=== PATIENT | male | born 1980 | race Caucasian/White ===

== ENCOUNTER → 2017-08-10 | Outpatient (CLI) | payer OTHER | LOC: LAB 13:52 | PROVIDERS: ATTEND Obstetrics & Gynecology Reproductive Endocrinology | DX: Z31.448 Encounter for other genetic testing of male for procreative management (principal) | CPT/HCPCS: 36415; 88230; 88262; 88291 ==

== ENCOUNTER → 2017-08-10 | Outpatient (CLI) | payer OTHER ==
--- NOTE | 2017-08-10 15:31 | RADIOLOGY IMAGING REPORT ---
FACILITY: [facility] - [place] PATIENT NAME: Gabriel Alexis : 1980 MR: [id number] V: [id number] EXAM DATE: ORDERING PHYSICIAN: JENNIFER WIGGINS TECHNOLOGIST: Location: [facility] Patient: Gabriel Alexis : 1980 Visit/Account:[id number] Date of Sevice: 08/10/2017 EXAMINATION: Limited Abdomen Ultrasound HISTORY: Elevated liver function tests COMPARISON: None FINDINGS: Pancreas: Pancreas head and body have uniform echogenicity and well-defined margins. Pancreas tail is scattered by bowel gas. Liver: Liver is normal size with smooth margins and homogeneous intermediate echogenicity. Normal di rectional blood flow in the main portal vein by duplex Doppler ultrasound. Bile ducts: Intrahepatic and extrahepatic bile ducts are not distended. The common hepatic duct at the liver hilum measures 3.5 mm. Gallbladder:Gallbladder is normal size and wall thickness. Gallbladder contains no stones or sludge. Right Kidney: Right kidney measures 11 x 5 x 5 cm. A cyst with asymmetrically thickened wall and sep tation arising from the medial upper pole measures 2.7 x 2.5 x 2.5 cm. No blood flow is seen within the cyst septation or wall by color Doppler ultrasound. Abdominal aorta and IVC:Abdominal aorta and IVC are normal caliber. Both are patent. Ascites: None IMPRESSION: 1. Right kidney upper pole 3 cm cyst with eccentric thick wall and thin septation. Recommend CT abd omen with and without IV contrast for further assessment. 2. Normal ultrasound appearance of the liver. Report Dictated By: Stephanie Romero MD at 08/10/2017 3:17 PM Report E-Signed By: Stephanie Romero MD at 08/10/2017 3:26 PM WSN:[email or web address]
== END ==
LOC: US 12:52
PROVIDERS: ATTEND Family Medicine
DX: N28.1 Cyst of kidney, acquired (principal)
CPT/HCPCS: 76705

== ENCOUNTER → 2017-08-20 | Outpatient (CLI) | payer OTHER ==
[~2017-08-20] MED LIST: IOPAMIDOL 76% 75 ML INFUS BTL 75 ML ONE
--- NOTE | 2017-08-20 11:33 | RADIOLOGY IMAGING REPORT ---
FACILITY: [facility] PATIENT NAME: Gabriel Alexis : 1980 MR: [id number] V: [id number] EXAM DATE: ORDERING PHYSICIAN: JENNIFER WIGGINS TECHNOLOGIST: Location: [facility] [place] Patient: Gabriel Alexis : 1980 Visit/Account:[id number] Date of Sevice: 08/20/2017 CT ABDOMEN WITH AND WITHOUT CONTRAST CLINICAL INFORMATION: Kidney cyst TECHNIQUE: Axial CT images were obtained through the abdomen before and after injection of nonionic iodinated intravenous contrast. Reformatted coronal and sagittal images were also obtained. Pre cont rast and delayed images were obtained. For groundglass nodules this size, no routine follow-up is rec ommended. CONTRAST: 75ml of IV Isovue-370 contrast. COMPARISON: Liver ultrasound August 10, 2017. FINDINGS: Lower lung gusman: Limited views lower lung field are unremarkable. Liver: No focal parenchymal abnormality of the liver. Biliary: Gallbladder appears unremarkable as well as the intra and extra hepatic biliary system. Pancreas: Normal appearance. Spleen: Normal appearance. Adrenal glands: Unremarkable. Kidneys / retroperitoneum: In the anterior upper pole of the right kidney is a 2.2 x 2.6 x 2.2 cm cys t with slightly irregular wall with thin septations although no abnormal enhancement within the wall. No other abnormality of either kidney is seen Bowel / peritoneum / mesenteries: The visualized small and large bowel appear unremarkable. Vessels: No significant atherosclerotic calcification seen throughout a nonaneurysmal abdominal aorta and branches. Musculoskeletal / Body wall: Small umbilical hernia containing fat Lymph node assessment: No pathologic adenopathy identified. IMPRESSION: 1. There is a 2.2 x 2.2 x 2.6 cm cyst in the upper pole the right kidney with thin septations. The wall appears mildly irregular although no abnormal enhancement is identified. 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 A six-month follow-up CT or MR is recommended. 2. 3. Report Dictated By: Michell Cani MD at 08/20/2017 11:19 AM Report E-Signed By: Michell Cain MD at 08/20/2017 11:29 AM WSN:[email or web address]
== END ==
LOC: CT 03:04
PROVIDERS: ATTEND Family Medicine
DX: Q61.01 Congenital single renal cyst (principal); K42.9 Umbilical hernia without obstruction or gangrene
CPT/HCPCS: 74170; Q9967